=== PATIENT | female | born 2000 | race Caucasian/White ===

== ENCOUNTER 2020-09-05 14:41 | Emergency (ER) | payer OTHER, BC, SELFPAY ==
[2020-09-05] VITALS (9 sets, daily range): BP systolic 115–138; BP diastolic 69–92; PULSE 66–86; RESP 12–18; TEMP 36.2; O2SAT 99–100
--- NOTE | ~2020-09-05 | CT_ITS ---
EXAMINATION: CT brain wo con DATE: 09/05/2020 15:18 INDICATION: Posterior head injury, possible loss of consciousness. Confusion. History of seizures. TECHNIQUE: Computed tomography (CT) of the head was performed without intravenous contrast. The mA wa s adjusted according to patient size. Iterative reconstruction technique was employed. Exam dose: 60 5.33 mGy-cm total exam DLP. COMPARISON: None FINDINGS: There may be a very slight approximately 1.5 mm deep subdural hematoma in the right frontal area (series 2 images 24, 25. This might represent a contrecoup injury given the history of posterio r head trauma. Short-term CT brain follow-up is recommended. Otherwise no intracranial mass lesion or hemorrhage, midline shift or mass effect is evident. Normal rosado-white matter differentiation. Normal ventricular size. No orbital mass lesion. No skull fracture is detected. IMPRESSION: Possible very slight right frontal subdural hematoma; short-term follow-up CT brain imag ing in 12 to 24 hours is recommended, preferably tomorrow morning. Dr. Soriano telephoned the report and recommendation for short-term CT brain follow up on 09/05 at 1540 h ours to ER Physician [employer] Automatic Trudi. Reviewed, dictated and finalized at [facility]. Reviewed, dictated and finalized at [facility]. BUILDER IMPRESSION: Possible very slight right frontal subdural hematoma; short-term f ollow-up CT brain imaging in 12 to 24 hours is recommended, preferably tomorrow morning. Dr. Soriano telephoned the report and recommendation for short-term CT brain follo w up on 09/05 at 1540 hours to ER Physician [employer] Trudi.
--- NOTE | 2020-09-05 15:05 | ED.HEATRA ---
HPI - Head Injury General Chief complaint: Head Injury Stated complaint: slipped on ice, hit back o head Time Seen by Provider: 09/05/20 14:45 Source: patient and family Mode of arrival: ambulatory Limitations: no limitations History of Present Illness HPI Narrative: This is a 20-year-old female that presents to the emergency department for a fall today with head injury. Reports she slipped on the ice and fell backwards. Reports hitting her head. She is unsure if she lost consciousness. Reports since she has felt lightheaded. Denies fever, neck pain, back pain, prodromal symptoms, vision changes, vomiting, numbness, or weakness. Related Data Home Medications Medication Instructions Recorded Confirmed No Home Medications 09/05/20 09/05/20 Allergies Allergy/AdvReac Type Severity Reaction Status Date / Time No Known Allergies Allergy Mild Verified 09/05/20 14:50 Review of Systems Review of Systems: Narrative: CONSTITUTIONAL: Denies fever EYES: Denies visual changes GASTROINTESTINAL: Denies vomiting MUSCULOSKELETAL: Reports myalgia. Denies back pain, joint pain NEUROLOGIC: Denies numbness, or weakness. All systems reviewed & are unremarkable except as noted in HPI and below PMFSH Past Medical History Medical History (Updated 09/05/20 @ 16:37 by Trudi Tipton PA-C) History of autism Social History Social History (Updated 09/05/20 @ 15:07 by Trudi Tipton PA-C) Smoking status: Never smoker Substance use: never Gender identity (if verbalized by the patient): Female Exam Narrative: Exam Narrative: GENERAL: Well-appearing, well-nourished, and in no acute distress. HEAD: Normocephalic, atraumatic. EYES: PERRLA and EOMI. ENT: Nares clear, no rhinorrhea or epistaxis. Mucous membranes moist. Oropharynx without tonsillar hypertrophy exudate or other lesions. Bilateral TMs pearly rosado non-bulging NECK: Supple. No adenopathy or masses. No midline spinal tenderness CHEST: Clear to auscultation. No respiratory distress. No wheezes rales or rhonchi HEART: Regular rate and rhythm. No murmur heard. Normal peripheral pulses. BACK: No midline thoracic or lumbar spine tenderness EXTREMITIES: Normal range of motion. No edema. Strength equal in bilateral upper and lower extremities (5/5) SKIN: Warm, dry, no rash. NEURO: No focal deficits. Alert and oriented x3. Cranial nerves II through XII grossly intact PSYCH: Normal mood and affect Course Vital Signs Vital signs: Vital Signs Temperature 97.2 F L 09/05/20 14:45 Pulse Rate 81 09/05/20 14:45 Respiratory Rate 17 09/05/20 14:45 Blood Pressure 138/92 H 09/05/20 14:45 Pulse Oximetry 99 09/05/20 14:45 Temperature 97.2 F L 09/05/20 14:45 Pulse Rate 68 09/05/20 15:58 Respiratory Rate 18 09/05/20 15:58 Blood Pressure 130/82 09/05/20 15:58 Pulse Oximetry 100 09/05/20 15:58 MDM - Head Injury MDM Narrative Medical decision making narrative: Patient presents the emergency department for fall today with head injury. Patient is neurologically intact. No midline spinal tenderness. No other injuries noted. CT scan of the brain shows a possible very small right frontal subdural hematoma. Spoke with Dr. Good ED physician at [facility] who accepts transfer for further evaluation and monitoring Imaging Data Radiologist's impression: ITS Impressions Head CT 09/05/20 15:22 IMPRESSION: Possible very slight right frontal subdural hematoma; short-term follow-up CT brain imaging in 12 to 24 hours is recommended, preferably tomorrow morning. Dr. Soriano telephoned the report and recommendation for short-term CT brain follow up on 09/05 at 1540 hours to ER Physician Food Production [employer] Operator Trudi. Critical Care Time Critical Care Time Critical Care Time: Yes Total Critical Care Time: 35 Discharge Plan Discharge Clinical Impression: Subdural hematoma Patient Disposition: Acute Care Hospital Condition: Stable Prescriptions: No
--- NOTE | 2020-09-05 16:37 | PC.NURSE ---
[facility] Accpted Transfer to [facility] Trip # [id number] ETA [id number]
--- NOTE | 2020-09-05 16:40 | PC.NURSE ---
[facility] declined transfer - no trucks available
--- NOTE | 2020-09-05 17:47 | PC.NURSE ---
New ETA for [facility]
== END 2020-09-05 20:03 | disposition short-term general hospital (02) ==
PROVIDERS: Emergency Provider Emergency Medicine; PCP Nurse Practitioner Family
DX: S06.5X9A Traumatic subdural hemorrhage with loss of consciousness of unspecified duration, initial encounter (principal); F84.0 Autistic disorder; W00.0XXA Fall on same level due to ice and snow, initial encounter
CPT/HCPCS: 70450; 99285

== ENCOUNTER 2022-03-07 14:12 | Emergency (ER) | payer BC, SELFPAY ==
[2022-03-07 14:15] VITALS: BP 113/95; PULSE 114; RESP 16; TEMP 36.7; O2SAT 100
[2022-03-07 15:07] LABS: SARS-CoV-2 RNA PCR Negative
--- NOTE | 2022-03-07 16:57 | ED.GENADULT ---
HPI - General Adult General Chief complaint: Upper Respiratory Infection Stated complaint: sore throat Time Seen by Provider: 03/07/22 14:25 History of Present Illness HPI narrative: Patient is a 21-year-old female who presents ER with sore throat. Ongoing for 2 days. Associated with some postnasal drip and sinus congestion. No fevers or chills or sweats. No known sick contacts. Patient had pain with swallowing but then spread the back of her mouth with the numbing spray and could swallow and breathe without issue. Related Data Home Medications Medication Instructions Recorded Confirmed escitalopram oxalate 10 mg tablet mg 03/07/22 03/07/22 norethindrone 1 mg-ethinyl tablet 03/07/22 estradiol 10 mcg (24)-iron 10 mcg(2) tablet (Lo Loestrin Fe) Allergies Allergy/AdvReac Type Severity Reaction Status Date / Time No Known Allergies Allergy Mild Verified 09/05/20 14:50 Review of Systems Constitutional: Constitutional: Denies chills, Reports fatigue and Denies fever(s) ENT: Reports nasal congestion and Reports sore throat Cardiovascular: Cardiovascular: Denies chest pain and Denies rapid heart rate Respiratory: Respiratory: Denies chest congestion, Reports cough and Denies dyspnea PMFSH Past Medical History Medical History (Updated 03/07/22 @ 17:06 by Darren Hernandez MD) History of autism Social History Social History (Updated 09/05/20 @ 15:07 by Trudi Tipton PA-C) Smoking status: Never smoker Substance use: never Gender identity (if verbalized by the patient): Female Exam Narrative: GENERAL: Well-appearing, well-nourished, and in no acute distress. HEAD: Normocephalic, atraumatic. ENT: Mucous membranes moist. Pharyngeal erythema noted. No tonsillar hypertrophy or uvular shift. NECK: Supple. CHEST: Clear to auscultation. No respiratory distress. HEART: Regular rate and rhythm. Normal peripheral pulses. NEURO: Alert and oriented x3. PSYCH: Normal mood and affect. Course Course Emergency Course: Patient resting comfortably. Informed results. Discharge home. Vital Signs Vital signs: Vital Signs Temperature 98.1 F 03/07/22 14:15 Pulse Rate 114 H 03/07/22 14:15 Respiratory Rate 16 03/07/22 14:15 Blood Pressure 113/95 H 03/07/22 14:15 Pulse Oximetry 100 03/07/22 14:15 Temperature 98.1 F 03/07/22 14:15 Pulse Rate 114 H 03/07/22 14:15 Respiratory Rate 16 03/07/22 14:15 Blood Pressure 113/95 H 03/07/22 14:15 Pulse Oximetry 100 03/07/22 14:15 Medical Decision Making Vital Signs Vital Signs: Vital Signs Temperature 98.1 F 03/07/22 14:15 Pulse Rate 114 H 03/07/22 14:15 Respiratory Rate 16 03/07/22 14:15 Blood Pressure 113/95 H 03/07/22 14:15 Pulse Oximetry 100 03/07/22 14:15 Temperature 98.1 F 03/07/22 14:15 Pulse Rate 114 H 03/07/22 14:15 Respiratory Rate 16 03/07/22 14:15 Blood Pressure 113/95 H 03/07/22 14:15 Pulse Oximetry 100 03/07/22 14:15 Lab Data Labs: Lab Results 03/07/22 Range/Units 14:25 SARS-CoV-2 RNA (RT-PCR) Negative Strep Screen Presumptive Negative *(Reference Range: Negative)* Discharge Plan Discharge Clinical Impression: Pharyngitis Patient Disposition: Home, Self-Care Condition: Stable Instructions: Pharyngitis (ED) Additional Instructions: Return to the ER if you cannot breathe, you cannot swallow, you lose consciousness, you have additional concerns. Use throat lozenges to soothe your throat. Use fluticasone to help with pain congestion you are having. Prescriptions: New fluticasone propionate [Allergy Relief (fluticasone)] 50 mcg/actuation spray,suspension 1 spray intranasal DAILY Qty: 16 0RF Rx Instructions: administer into each nostril No Action escitalopram oxalate 10 mg tablet Lo Loestrin Fe 1 mg-10 mcg (24)/10 mcg (2) tablet Fo
== END 2022-03-07 18:12 | disposition home or self-care (01) ==
PROVIDERS: Emergency Provider Emergency Medicine; PCP Nurse Practitioner Family
DX: J02.9 Acute pharyngitis, unspecified (principal); F84.0 Autistic disorder
CPT/HCPCS: 87081; 87880; 99283; C9803; U0003; U0005

== ENCOUNTER 2023-04-21 10:22 | Emergency (ER) | payer BC, SELFPAY ==
[2023-04-21 10:39] VITALS: BP 132/85; PULSE 89; RESP 18; TEMP 36.8; O2SAT 98
--- NOTE | 2023-04-21 11:17 | ECG_ITS ---
Measurements Intervals [place] Rate: 71 P: 54 [place]: 154 QRS: 31 QRSD: 85 T: 8 QT: 380 QTc: 415 Interpretive Statements SINUS RHYTHM MINIMAL Q WAVES- HIGH LATERAL LEADS BORDERLINE T WAVE ABNORMALITY- ANT/INF LEADS BASELINE ARTIFACT- I, III, AVL BORDERLINE ECG NO PREVIOUS ECG AVAILABLE FOR COMPARISON Electronically Signed On 04-21-2023 11:46:46 CDT by Ahmet Rodriguez D.O.
[2023-04-21 11:28] VITALS: BP 132/81; PULSE 73; RESP 13; O2SAT 100
[2023-04-21 11:33] LABS: Basophils Percent Auto 0.4 % (0.2-1.2); Eosinophils Absolute Auto 0.1 K/mm3 (0-0.3); Eosinophils Percent Auto 1.5 % (0-4.4); Hematocrit 42.5 % (37.0-47.0); Hemoglobin 14.4 g/dL (12.0-15.0); Immature Granulocyte Absolute 0.01 K/mm3 (0.00-0.031); Immature Granulocyte Percent A 0.2 % (0-0.5); Lymphocytes Percent Auto 38.5 % (18.3-44.2); Mean Corpuscular HGB Conc 33.9 g/dl (32-36); Mean Corpuscular Volume 91.4 fl (80-100); Mean Platelet Volume 9.5 fl (7.4-10.4); Monocytes Absolute Auto 0.5 K/mm3 (0.1-0.6); Monocytes Percent Auto 10.7 % (2.6-8.5); Neutrophils Absolute Auto 2.3 K/mm3 (1.3-6.7); Neutrophils Percent Auto 48.7 % (45.5-73.1); Platelet Count Result 196 k/mm3 (150-375); Red Blood Count 4.65 M/mm3 (4.2-5.4); Red Cell Distribution Width 12.6 % (11.5-14.5); White Blood Count 4.7 K/mm3 (4.5-10.0)
[2023-04-21 11:45] LABS: Alanine Aminotransferase 21 U/L (6-35); Anion Gap 4 mmol/L (8-16); Aspartate Amino Transferase 32 U/L (14-36); Bilirubin,Total 0.3 mg/dL (0.2-1.3); Blood Urea Nitrogen 10 mg/dL (7-17); Calcium 8.5 mg/dL (8.4-10.2); Carbon Dioxide 29 mmol/L (22-30); Chloride 104 mmol/L (98-107); Estimated CRCL calculation 148 ml/min; Estimated Glomerular Filt Rate > 60; Glucose 92 mg/dL (65-110); Potassium 3.9 mmol/L (3.4-5.0); Sodium 137 mmol/L (137-145)
[2023-04-21 11:46] LABS: Albumin Level 3.9 g/dL (3.5-5.1); Alkaline Phosphatase 80 U/L (38-126)
[2023-04-21 12:23] VITALS: BP 121/82; BP 132/82; BP 136/82; PULSE 110; PULSE 97; PULSE 98
[2023-04-21 12:24] VITALS: BP 136/82; PULSE 79; RESP 13; O2SAT 98
--- NOTE | 2023-04-21 12:56 | ED.GENADULT ---
HPI - General Adult General Chief complaint: Syncope Stated complaint: Syncope Time Seen by Provider: 04/21/23 11:16 History of Present Illness HPI narrative: 22-year-old female presents emergency department for evaluation after having a syncopal episode at work. Patient states that she had some nausea yesterday and decreased p.o. intake. Patient reports this morning she also had some nausea and vomiting and was unable to eat. Patient states this is not uncommon for her. Patient did start antidepression medications approximately 3 weeks ago. Patient states she still has some nausea but denies any chest pain shortness of breath or diarrhea. Patient is requesting water. Patient denies any previous cardiac history. Related Data Home Medications Medication Instructions Recorded Confirmed escitalopram oxalate 10 mg tablet mg 03/07/22 03/07/22 norethindrone 1 mg-ethinyl tablet 03/07/22 estradiol 10 mcg (24)-iron 10 mcg(2) tablet (Lo Loestrin Fe) Allergies Allergy/AdvReac Type Severity Reaction Status Date / Time No Known Allergies Allergy Mild Verified 04/21/23 11:20 Review of Systems Review of Systems: All systems reviewed & are unremarkable except as noted in HPI and below PMFSH Past Medical History Medical History (Updated 04/21/23 @ 14:53 by Osei Camarena MD) History of autism Social History Social History (Updated 09/05/20 @ 15:07 by Trudi Tipton PA-C) Smoking status: Never smoker Substance use: never Gender identity (if verbalized by the patient): Female Exam Narrative: APPEARANCE: Well appearing, no pain, no distress, well-nourished. HEAD: normocephalic, atraumatic. EYES: PERRLA/EOMI, conjunctivae clear. NOSE: Normal no drainage EARS:TMS clear with good light reflex. THROAT: Pharynx clear, no exudate. NECK: Supple. No adenopathy, no masses. RESPIRATORY: Airway patent, respirations nonlabored. Clear to auscultation bilaterally, no rales, rhonchi, wheezing. CARDIOVASCULAR: Regular rate and rhythm without murmurs rubs or gallops. ABDOMINAL: Soft, nontender, nondistended, normal bowel sounds MUSCULOSKELETAL: Moves all extremities. Strength/ROM intact, No edema, No calf tenderness. NEURO: Alert. Cranial nerves II through XII intact. Good gait. Good coordination SKIN: Warm, dry. Normal Color PSYCHIATRIC: Normal affect/mood. Course Course Emergency Course: 22-year-old female presented emergency department for evaluation for new syncopal episode at work today. Patient did feel improved after rehydration. Patient had normal orthostatic vital signs and after ambulation patient was asymptomatic with ambulation. Patient was afebrile with no leukocytosis and a stable hemoglobin. Patient had no electrolyte abnormalities and UA showed no evidence of infection. EKG showed normal sinus rhythm with no evidence of ischemic change. Patient was updated results of her work-up. Patient has been taking a new medication for her depression and this may be affecting her appetite and nausea. Patient will follow-up with her primary care physician to determine if she needs to have any medication changes. In the meantime patient was suggested to follow a clear liquid diet and was provided Zofran for nausea control. Patient and family were comfortable with the plan for discharge and close follow-up Vital Signs Vital signs: Vital Signs Temperature 98.2 F 04/21/23 10:39 Pulse Rate 89 04/21/23 10:39 Respiratory Rate 18 04/21/23 10:39 Blood Pressure 132/85 04/21/23 10:39 Pulse Oximetry 98 04/21/23 10:39 Oxygen Delivery Autopap 04/21/23 10:39 Temperature 98.2 F 04/21/23 10:39 Pulse Rate 73 04/21/23 15:07 Respiratory Rate 17 04/21/23 15:07 Blood Pressure 122/73 04/21/23 15:07 Pulse Oximetry 99 04/21/23 15:07 Oxygen Delivery Autopap 04/21/23 10:39 Medical Decision Making Differential Diagnosis Differential Diagnosis: Vasovagal, orthostatic hypotensio
[2023-04-21] MEDS: ONDANSETRON INJ 4 MG/2 ML VIAL IV PUSH (13:03)
[2023-04-21] MEDS: SODIUM CHLORIDE 0.9% IV 1,000 ML 999 ML IV CONT (13:04)
[2023-04-21 13:15] LABS: Appearance Urine Clear (Clear); Bacteria Urine None Seen /hpf; Bilirubin Urine Negative (Negative); Blood Urine 1+ (Negative); Color Urine Yellow (Yellow); Glucose Urine UA Negative (Negative); Ketones Urine 3+ mg/dL (Negative); Leukocyte Esterase Ur Negative LEU/UL (Negative); Nitrate Urine Negative (Negative); Non Pathogenic Casts 0-2; Protein Urine Negative (Negative); Squamous Epithelial Cell Urine None seen /hpf (Few); WBC Urine 0-5 /hpf
[2023-04-21 13:33] LABS: Add Urine Microscopic? YES
[2023-04-21 13:54] VITALS: PULSE 67; RESP 20; O2SAT 100
[2023-04-21 15:07] VITALS: BP 122/73; PULSE 73; RESP 17; O2SAT 99
== END 2023-04-21 15:09 | disposition home or self-care (01) ==
PROVIDERS: Emergency Provider Emergency Medicine; PCP Nurse Practitioner Family
DX: R55 Syncope and collapse (principal); R11.0 Nausea; F84.0 Autistic disorder; R94.31 Abnormal electrocardiogram [ECG] [EKG]
CPT/HCPCS: 36415; 80053; 81001; 81025; 85025; 93005; 96361; 96374; 99284; J2405; J7030